=== PATIENT | male | born 1960 | race Caucasian/White ===

== ENCOUNTER → 2017-08-08 | Outpatient (CLI) | payer OTHER ==
[2017-08-08 11:40] LABS: HEMATOCRIT 35.8 % (39.0-53.0); HEMOGLOBIN 11.9 g/dL (13.0-17.5)
[2017-08-08 11:44] LABS: BACTERIA,URINE 0 /HPF (0-FEW); BILIRUBIN,URINE NEG (NEG); CLARITY,URINE CLEAR; COLOR,URINE STRAW; GLUCOSE,URINE 250 mg/dL (NEG); NITRITE,URINE NEG (NEG); RBC,URINE 0 /HPF (0-2); SQUAMOUS EPITHELIAL CELL,UR OCC /LPF; UROBILINOGEN,URINE 0.2 mg/dL (0.2 mg/dL); WBC,URINE 0 /HPF (0-4)
[2017-08-08 11:51] LABS: ALBUMIN 3.6 g/dL (3.4-5.0); CALCIUM 8.7 mg/dL (8.5-10.1); CREATININE 1.5 mg/dL (0.7-1.3); GFR 47.9; PHOSPHORUS 3.5 mg/dL (2.6-4.7); POTASSIUM 4.5 mmol/L (3.5-5.1)
[2017-08-08 23:06] LABS: MICRO CREAT RATIO 560.5 mg/g creat (0.0-30.0); MICROALB RD UR 387.3 ug/mL (Not Estab.); PROTEIN RANDOM URINE 60.4 mg/dL (Not Estab.)
== END | disposition home or self-care (01) ==
LOC: LAB 11:01
PROVIDERS: ATTEND Internal Medicine Nephrology
DX: I12.9 Hypertensive chronic kidney disease with stage 1 through stage 4 chronic kidney disease, or unspecified chronic kidney disease (principal); N18.2 Chronic kidney disease, stage 2 (mild); E11.21 Type 2 diabetes mellitus with diabetic nephropathy; E11.65 Type 2 diabetes mellitus with hyperglycemia; N17.8 Other acute kidney failure; D50.9 Iron deficiency anemia, unspecified; R80.1 Persistent proteinuria, unspecified; Z68.37 Body mass index [BMI] 37.0-37.9, adult
CPT/HCPCS: 36415; 80069; 81001; 82043; 82570; 82728; 83540; 83550; 84156; 85014; 85018

== ENCOUNTER → 2019-03-07 | Outpatient (CLI) | payer OTHER ==
[2018-12-15 16:49] VITALS: BP 99/61
--- NOTE | 2019-03-07 16:07 | RAD ---
DATE: 03/07/2019 EXAM: DIGITAL DIAGNOSTIC BILATERAL, BREAST LEFT HISTORY: Left nipple scaling COMPARISON: None. This is the baseline. This study was interpreted with the benefit of Computerized Aided Detection (CAD). Breast Density: FATTY The breast parenchyma is primarily fatty replaced. Breast parenchyma level density A. FINDINGS: Right subareolar breast parenchyma is noted compatible with gynecomastia. No mass, suspicious calcification, or distortion. Left subareolar region is unremarkable. Ultrasound imaging of the left subareolar region was. There is no mass, ductal ectasia, or cyst. IMPRESSION: No suspicious imaging finding. Considering reported finding of scaling involving the left, correlate for possibility of Paget's disease of the breast. Clinical assessment is required in determining further evaluation. BI-RADS CATEGORY: 1 NEGATIVE RECOMMENDED FOLLOW-UP: CLIN FOLLOW UP IMAGING CLINICALLY INDICATED PQRS compliance statement: Patient information was entered into a reminder system with a target due date based on clinical follow-up for the next mammogram. Mammography is a sensitive method for finding small breast cancers, but it does not detect them all and is not a substitute for careful clinical examination. A negative mammogram does not negate a clinically suspicious finding and should not result in delay in biopsying a clinically suspicious abnormality. "Our facility is accredited by the [employer] Mammography Program."
== END | disposition home or self-care (01) ==
LOC: MAMMO 14:04
PROVIDERS: ATTEND Physician Assistant
DX: N62 Hypertrophy of breast (principal)
CPT/HCPCS: 76641; 77066